=== PATIENT | female | born 1950 | race Caucasian/White ===

== ENCOUNTER → 2022-11-29 | Outpatient (CLI) | payer MEDICARE, OTHER, SELFPAY ==
--- NOTE | 2022-11-28 | LES_PTH ---
PATIENT: CHICHO GONZALEZ LOC: [facility] U#:[id number] AGE/SX: 72/F ROOM: RE11/29/[address]: ZORAIDA SANTOS MD : 1950 BED: DIS: 11/29/2022 SPEC #: [id number] RECD: 11/29/22 09:48 STATUS: JOSH DANE #: [id number] LINK: 11/28/22 00:[address]: ZORAIDA SANTOS DEPT: SURGICAL PATHOLOGY RECD BY: Ailin Ramos Tissues: Skin of lip, NOS Procedures: Surgery Specimen Level IV HEADER OPERATION: Excision of lower lip lesion PRE-OP DIAGNOSIS: Lower lip growth TISSUE SUBMITTED: Lower lip lesion MICROSCOPIC DIAGNOSIS Lower lip lesion, Excision: Consistent with irritation fibroma. See comment. SJ: 11/30/22 COMMENT Correlation with clinical findings and appropriate follow up are necessary. MICROSCOPIC DESCRIPTION Slides are reviewed. GROSS DESCRIPTION Received is one container labeled with the patient name and designated lower lip lesion. The specimen consists of one irregular piece of gustafson mucosal tissue that measures 0.5 x 0.3 x 0.3 cm. The specimen is inked and totally submitted in one cassette. / SJ: 11/29/22 TC:5 CPT:76550
== END | disposition home or self-care (01) ==
LOC: LABSPEC 10:14
PROVIDERS: Referring Provider Dentist Oral and Maxillofacial Surgery; Visit Provider Dentist Oral and Maxillofacial Surgery
DX: K13.0 Diseases of lips (principal)
CPT/HCPCS: 88305

== ENCOUNTER 2023-08-16 09:08 | Day surgery (SDC) | payer MEDICARE, OTHER, SELFPAY ==
[2023-08-16] VITALS (7 sets, daily range): BP systolic 98–128; BP diastolic 59–84; PULSE 63–69; RESP 16–18; TEMP 35.8–36.3; O2SAT 95–100; BMI 32.3
[2023-08-16] MEDS: Lactated Ringers 1,000 ML 15 ML IV (09:52)
--- NOTE | 2023-08-16 09:55 | RAD_ITS ---
STUDY: X-RAY - RIGHT HUMERUS REASON FOR EXAM: Female, 73 years old. ORIF of humerus. TECHNIQUE: 4 intraoperative digital documentation view(s) of the humerus. COMPARISON: None. FINDINGS: 4 intraoperative digital documentation views show long lateral plate and screw fixation of the proximal right humerus. RAD/Humerus min 2 Views IMPRESSION: Intraoperative digital documentation views. Electronically Signed: Saurabh Perla MD at 15:59 EDT ,
[2023-08-16] MEDS: Cefazolin 2 GM in 0.9% Normal Saline (100mL Bag) 100 ML IV (11:14)
--- NOTE | 2023-08-16 15:41 | PCM.OPRPT ---
Report of Operation Date of Procedure: 08/16/23 Description of Surgical Findings:: Preoperative diagnosis: 1. Right comminuted proximal humeral shaft fracture 2. Full-thickness right shoulder supraspinatus rotator cuff tear Postoperative diagnosis: 1. Right comminuted proximal humeral shaft fracture 2. Full-thickness right shoulder supraspinatus rotator cuff tear Procedure: 1. Open reduction internal fixation right humeral shaft fracture 2. Right shoulder open rotator cuff repair Surgeon: Anurag Jefferson DO social science research assistant: Mary Ayala PA-C Anesthesia: General endotracheal with interscalene block Anesthesiologist: Dr. Mart Estimated blood loss: 300 cc IV fluids: 800 cc crystalloid Urine output: None recorded Specimen: None Complications: None apparent Implants: 11 hole Arthrex alpha of right proximal humerus 3.5 mm locking plate. 4.75 mm bio composite swivel lock anchor Indications: This is a 73-year-old female seen in the outpatient setting after a mechanical fall onto her right shoulder. She sustained a comminuted fracture at the proximal third of the humeral diaphysis. Initial alignment was within acceptable limits and she was treated nonoperatively. Unfortunately, the fracture drifted into significant varus and operative intervention was recommended. She was being treated previously in the last several months for a full-thickness rotator cuff tear. She was doing reasonably well with nonoperative management. Given the opportunity to access the rotator cuff tear, I did recommend we perform a rotator cuff repair at time of ORIF. I reviewed the risks, benefits, alternatives to procedure with patient at length and she agreed to proceed. Risks included but were not limited to bleeding, flexion, loss of life limb, need for additional surgery, persistent pain, nonhealing bone or tendon or wounds, neurovascular injury, DVT or PE, tendon injury, loss of function, stiffness, symptomatic hardware, risk of anesthesia. Patient expressed understanding of these risks and wished proceed with surgery. Description of procedure: Patient was identified in the preoperative holding her by name, medical record number, date of . The operative extremities marked. All questions were answered to the patient satisfaction. Interscalene block was administered by anesthesia staff prior to the procedure. At time of her procedure, patient brought the operative suite positioned supine a standard operative table with the beachchair attachment. General anesthesia was induced and endotracheal tube was placed. Tube was secured. Patient was placed in a well-padded head mixer for the beachchair positioning. She was then positioned in the beachchair position with all bony prominences well-padded. A chest wrap was placed around her chest tube was secured to the bed. We spun the bed 45 degrees. We prepped and draped the right upper extremity in normal, sterile orthopedic fashion. We performed timeout with all parties in attendance in agreement with the side, site, operation be performed. No concerns were voiced and elected to proceed with surgery. 2 g Ancef was administered prior to the incision by anesthesia staff. Standard deltopectoral incision was made proximally extending into an anterolateral approach to the humeral shaft. Skin flaps were developed down the level of the fascia. Fascia overlying the fat stripe between the deltopectoral hole was identified. Cephalic vein was identified and mobilized laterally with the deltoid. Biceps tenotomy was then performed and tenodesis performed to the pectoralis major tendon with a #2 FiberWire. Fracture was then encountered. I elevated the subacromial/subdeltoid bursa with a Piedra elevator. Full-thickness tearing of the supraspinatus crescent-shaped tear was noted. Early callus was noted at the fracture site. This was carefully debrided sharply with 15 blade scalpel and rongeur. I continued dissection distally identified in the interval of the biceps and brachialis. The anterior nervous plane of the brachialis was developed within its raphae and elevated to gain access to the humeral shaft. Provisional reduction was performed with a bone clamp and tenaculum. Reduction appeared acceptable. I selected an 11 hole plate. This was secured to bone with K wires provisionally. I compressed the plate to bone proximally and distally with cortical screws after appropriate hardware positioning was noted on orthogonal fluoroscopy. The proximal cluster of the plate was filled with unicortical locking screws. 4 total cortical screws were placed in the distal aspect of the plate. I elected to use the plate and bridge mode due to the amount of comminution at the fracture site. The humerus was brought through range of motion and the fracture was stable. Final fluoroscopic images were obtained. I then turned my attention to the rotator cuff. I lightly decorticated the supraspinatus footprint with a rasp. 2 inverted mattress sutures were placed with #2 FiberWire medial to the rotator cable. Sutures were then passed through the eyelet of a swivel lock anchor. We then punched at the lateral aspect of the rotator cuff footprint. Sutures were tensioned and swivel lock was placed with excellent purchase. Sutures were cut flush with the anchor. There is excellent reapproximation of rotator cuff tissue to its footprint. Wound was then copiously irrigated with normal saline solution. Fascia was closed with running locking 0 Vicryl suture. Dermis was reapproximated buried 2-0 Vicryl suture. Skin was found approximately aly. Silver sterile compression dressing was applied. Patient was placed in a simple sling. She tolerated the procedure well without apparent complication. She was safely awoken the operative suite extubated. She was transferred to her gurney and subsequent to PACU in stable condition. Postoperative plan: Nonweightbearing operative extremity Pendulums only right shoulder, range of motion as tolerated right elbow wrist and hand. Okay to shower postoperative day #4 Maintain surgical dressing x 4 days. Then okay to remove and leave open to air if no drainage Follow-up in 2 weeks. Prescription for oxycodone provided. Tylenol and ibuprofen encouraged Plan to initiate physical therapy in approximately 2 weeks for early passive range of motion right shoulder and elbow.
== END 2023-08-16 16:25 | disposition home or self-care (01) ==
LOC: SDC 09:10 → AC 09:12
PROVIDERS: PCP Student in an Organized Health Care Education/Training Program; Referring Provider Student in an Organized Health Care Education/Training Program; Visit Provider Student in an Organized Health Care Education/Training Program
PROC: (CPT 23615; principal; 2023-08-16 10:35)
DX: S42.351D Displaced comminuted fracture of shaft of humerus, right arm, subsequent encounter for fracture with routine healing (principal); M75.121 Complete rotator cuff tear or rupture of right shoulder, not specified as traumatic; R23.3 Spontaneous ecchymoses; I10 Essential (primary) hypertension; Z98.51 Tubal ligation status; Z87.19 Personal history of other diseases of the digestive system; M19.011 Primary osteoarthritis, right shoulder; M75.41 Impingement syndrome of right shoulder; E66.9 Obesity, unspecified; Z68.32 Body mass index [BMI] 32.0-32.9, adult
CPT/HCPCS: 23615; 23410; 01630; 64450; 73060; 76000; C1713; J7120; J2405